=== PATIENT | female | born 1950 | race Caucasian/White ===

== ENCOUNTER 2017-07-06 09:27 | Observation (INO) ==
[2017-07-06] MEDS ORDERED: ACETAMINOPHEN 325 MG TABLET PO PRN (09:31)
[2017-07-06] MEDS ORDERED: DOCUSATE SODIUM 100 MG CAPSULE PO PRN (09:31)
[2017-07-06] MEDS ORDERED: ONDANSETRON 4 MG/2 ML VIAL IV PRN (09:31)
[2017-07-06 10:25] LABS: Basophils % 0.4 % (0.0-0.8); Eosinophils # 0.1 10*3/uL (0.0-0.87); Eosinophils % 0.5 % (0.00-10.9); Hematocrit 45.5 VOL% (35.7-47.0); Immature Granulocytes % 0.3 %; Immature Granulocytes Absolute 0.03 #; Lymphocytes # 2.5 10*3/uL (1.4-4.0); Mean Corpuscular HGB Conc 35.2 GM/DL (32-36); Mean Corpuscular Hemoglobin 30 PG (27-34); Mean Corpuscular Volume 84.9 FL (87-102); Mean Platelet Volume 9.3 FL (9.6-12.0); Monocytes # 0.8 10*3/uL (0.11-0.8); Monocytes % 7.4 % (1.7-12.7); Neutrophils # 7.1 10*3/uL (1.4-7.4); Neutrophils % 67.4 % (38.7-73.9); Platelet Count 235 T/CUMM (130-400); Red Blood Count 5.36 MC/CUMM (3.8-5.5); Red Cell Distribution Width 13.6 % (9.3-17.3); White Blood Count 10.5 T/CUMM (4-12)
[2017-07-06 10:53] LABS: Albumin 4.1 G/DL (3.4-5.0); Bilirubin,Total 0.6 MG/DL (0.2-1.0); Magnesium 2.4 MG/DL (1.8-2.4); Osmolality,Calculated 280.4 MOS/KG (273-304); Potassium 4.1 MMOL/L (3.5-5.1); Total Protein 7.3 G/DL (6.4-8.3)
[2017-07-06 10:55] LABS: Troponin I Only < 0.015 NG/ML (0.00-0.045)
--- NOTE | 2017-07-06 10:56 | EKG Report ---
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
[2017-07-06 11:31] LABS: Troponin I Only < 0.015 NG/ML (0.00-0.045)
[2017-07-06 11:49] LABS: Apearance,Urine Slightly Hazy (Clear); Bacteria,Urine Occasional /HPF (Few); Bilirubin,Urine Negative (Negative); Blood, Urine Negative (Negative); Glucose,Urine (UA) Negative (Negative); Ketones,Urine 5 mg/dL (Negative); Mucus,Urine Occasional /LPF (Occasional); Nitrite,Urine Negative (Negative); Protein,Urine Negative; RBC,Urine 2 /HPF (0-4); Squamous Epithelial Cell,Urine Occasional /HPF (0-10); Urine Color Yellow (Yellow); WBC,Urine 1 /HPF (0-6)
--- NOTE | 2017-07-06 12:35 | Family Practice History&Phys ---
Assessment and Plan (1) Chest pain at rest Status: Acute Assessment and plan: 07/06/2017 we will admit patient and have her see cardiology. I am going to put her on Lopressor gave her an aspirin in the clinic she was admitted to the hospital. Current Visit: Yes (2) Fibromyalgia Status: Acute Assessment and plan: 07/06/2017: We will continue any medicines necessary for this. She is on chronic pain medicine Current Visit: Yes (3) History of gastroesophageal reflux (GERD) Status: Acute Assessment and plan: 07/06/2017: She can only take probably 6. States that she does not tolerate Protonix so we will continue Prilosec Current Visit: Yes History of Present Illness Chief complaint: Chest pain History of present illness: Ms. Cronin is a 67 year old female Came to my clinic with some what atypical chest pain. She stated that she had been having "pressure "for a few days in her chest, describing it as labor pains. She had a little bit of nausea but no vomiting. I cannot reproduce this pain with palpation or pressing of the chest wall. Nor with moving her arms. It did go up into her shoulder slightly but not into the jaw all and not down her arm. Does not have any associated diaphoresis but has had some shortness of breath. She is was concerned that she had a pneumonia but her lungs are totally clear and oxygen sats are 96%. I felt the best approach at this time will be to put her in the hospital for observation and get some cardiac ices with serial EKGs. She has had a cardiac study approximately "3 years "ago which she reported as negative but she has some risk factors include including hypercholesterolemia, hyperlipidemia and was a former smoker. I am going to get cardiology to look at her during this visit. If she is fine tomorrow with them I can probably discharge her. Allergies Allergy/AdvReac Type Severity Reaction Status Date / Time acetaminophen Allergy Mild NUMBNESS Verified 07/06/17 10:35 [From Darvocet-N] Amoxicillin [From Augmentin] Allergy Mild Gastrointestinal Verified 07/06/17 10: 35 Upset clavulanic acid Allergy Mild Gastrointestinal Verified 07/06/17 10:35 [From Augmentin] Upset propoxyphene Allergy Mild NUMBNESS Verified 07/06/17 10:35 [From Darvocet-N] 12 point system: reviewed and no additional remarkable complaints except as stated (Those mentioned above in the history and physical) - Cardiovascular Cardiovascular: Present: chest pain at rest - Respiratory Respiratory: Absent: wheezing - Genitourinary Genitourinary: Absent: difficulty urinating - Musculoskeletal Musculoskeletal: Present: arthralgias (History of fibromyalgia) - Neurological Neurological: Absent: abnormal gait, disequilibrium - Endocrine Endocrine: Absent: polyuria Medical,Surgical,& Family Hx - Medical History Rheumatology: History of;: Fibromyalgia Respiratory: History of: Pneumonia, Respiratory Problems (nodle right lung) Gastrointestinal: History of: GERD, GI Problems (IBS) Musculoskeletal: History of: Degenerative Disk Disease Reproductive: History of: Reproductive Problems (breast biopsy) - Surgical History Cardiac Surgeries: Sugical HX of: Cardiac Catheterization Thoracic Surgeries: Patient denies;: Organ Transplant Abdominal Surgeries: Surgical HX of: Appendectomy, Cholecystectomy, Colonoscopy , EGD Reproductive Surgeries: Surgical HX of;: Breast Surgery, Genitourinary Surgery ( bladder tact) Orthopedic Surgeries: Surgical HX of;: Total Knee Replacement - Family History Family History: Reports;: Family Hypertension, Family Stroke Denies;: Family Cancer, Family Diabetes, Family Heart Disease, Family Hematology - Social History Smoking Status: Former smoker Frequency of Alcohol Use: None Type of Drug Use: None Exam - Constitutional Vitals: Period Temp Pulse Resp BP Sys/Rodriguez Pulse Ox Last 24 Hr 98.9 F 66 16 142/60 97 Exam: Generally well-developed female is alert and oriented answers all questions appropriately. This is her second visit to me for the similar situation HEENT neck supple trachea midline oropharynx negative Cardiovascular rate is regular at present Lungs generally clear no wheezing rales rhonchi appreciated the patient is not coughing. Abdomen soft nondistended Extremities no clubbing cyanosis or edema Results - Labs CBC & BMP: 07/06/17 10:18 07/06/17 10:18
[2017-07-06] MEDS: METOPROLOL SUCCINATE XL 25 MG TABLET PO SCH (12:39)
[2017-07-06] MEDS: ENOXAPARIN 40 MG/0.4 ML SYRINGE SUBCUT SCH (12:56)
[2017-07-06] MEDS: SODIUM CHLORIDE 0.45% 1,000 ML IV SCH (12:56)
--- NOTE | 2017-07-06 14:38 | XRay Report ---
XR chest 2V Indication: Respiratory preoperative evaluation Comparison: 07 October 2011 Findings: The heart and mediastinum are normal in size and configuration. The pulmonary vascularity is normal in caliber. No lung infiltrates, effusions, pneumothorax or other abnormality is demonstrated. Impression: Normal chest x-ray PROCEDURE INTERPRETED AT [facility] DEPARTMENT OF RADIOLOGY Final Report Signed by: Dr. Tawanda Oropeza
[2017-07-06 16:28] LABS: Troponin I Only < 0.015 NG/ML (0.00-0.045)
--- NOTE | 2017-07-06 16:54 | Cardiology Consult Note ---
Assessment and Plan - Time spent with patient Time spent with patient: Greater than 30 minutes (1) Chest pain at rest Status: Acute Current Visit: Yes (2) Dyslipidemia Status: Acute Current Visit: Yes (3) Hypertension Status: Acute Current Visit: Yes (4) Fibromyalgia Status: Chronic Current Visit: Yes (5) History of gastroesophageal reflux (GERD) Status: Chronic Current Visit: Yes (6) Pulmonary nodule Status: Chronic Assessment and plan: SEE PLAN OF CARE LISTED BELOW. Current Visit: Yes (7) Syncope Status: Acute Assessment and plan: SEE PLAN OF CARE LISTED BELOW. Current Visit: Yes (8) Fluttering sensation of heart Status: Acute Assessment and plan: SEE PLAN OF CARE LISTED BELOW. Current Visit: Yes History of Present Illness - Data of Consult Patient: new to practice Consult date: 07/06/17 Requesting Physician: Tony Dorsey Primary care physician: Tony Dorsey - Consult Narrative Reason for consult: Chest pain History of present illness: SURGICAL GARMENT INSPECTOR: Leonard Zhou PCP: Dr. Dorsey Ms. Cronin is a 67 year old female who is followed by Dr. Neville in the remote past. She has not been seen by local cardiology in over 3 years. She has been seen by Dr. Best in consultation in the hospital previously. Cardiac risk factors include: Advanced age, former smoker, family history of CAD (dad from [place] at age 65) and dyslipidemia. Past medical history includes fibromyalgia and GERD. She previously had normal cardiac nuclear perfusion stress test in 2008. Ejection fraction calculated at 66%. She underwent left heart catheterization per Dr. Best in 2012. She was noted to have normal coronary arteries. Left ventricle is normal in size, normal systolic function with ejection fraction above 60%. No segmental wall motion abnormalities. LVEDP 8 mmHg. Patient has not followed up in clinic. Patient was directly admitted from Dr. Dorsey's office earlier today after having complaints of chest pain. She has been having constant chest pain now for the last couple of months. She describes this as a dull, aching pain located midsternally. Radiates to left shoulder. Associated with shortness of breath. No nausea, vomiting or diaphoresis. She reports that her chest discomfort has progressed here lately. She reports it as constant. Worse with exertion. She also confirms easy fatigability and dyspnea on exertion. She has had 3 syncopal episodes over the last couple of months. She has noticed occasional heart fluttering. However, she tells me that this is not been associated with her syncopal episodes. These only last a short period of time. Resolve on their own. This morning, she did have an episode of presyncope while in the shower. She quickly got out of the shower and sat down. This quickly resolved. She then presented to her PCP for checkup. At that time, she was told that she needed to be admitted to the hospital for further evaluation. She is admitted under Dr. Dorsey's service. Housed in the CCU. Cardiology was consulted to further evaluate her symptomology. Patient seen and examined in the CCU. Currently without complaints of chest pain, heaviness or tightness. Not reproducible to light palpation. Cardiac biomarkers negative 3. EKG reveals poor R-wave progression. Chest x-ray does not reveal any acute cardiopulmonary processes. Her chest pain is atypical in nature.Cardiac biomarkers negative 3. EKG reveals poor R-wave progression. Patient underwent heart catheterization 2010 which revealed normal coronary arteries. Continue beta-blockade, aspirin and lipid-lowering agent. It is possible that this could be related to patient's underlying fibromyalgia. We will continue to cycle cardiac biomarkers and EKGs. I have discussed with Dr. Zhou. We will plan for cardiac stress test in the morning. N.p.o. after midnight. Hold beta blockade prior to stress test. Further recommendations to follow per Dr. Zhou. IMPRESSION AND PLAN 1. CHEST PAIN AT REST - Atypical in nature. Cardiac biomarkers negative 3. EKG reveals poor R-wave progression. Patient underwent heart catheterization 2010 which revealed normal coronary arteries. Continue beta-blockade, aspirin and lipid-lowering agent. It is possible that this could be related to patient' s underlying fibromyalgia. We will continue to cycle cardiac biomarkers and EKGs. I have discussed with Dr. Zhou. Order echocardiogram. We will plan for cardiac stress test in the morning. N.p.o. after midnight. Hold beta blockade prior to stress test. 2. FIBROMYALGIA - Chronic, stable. This may be contributing to patient's chest pain. Management per attending. 3. DYSLIPIDEMIA - Continue lipid-lowering agent. Lipid panel in the morning. 4. HISTORY OF GERD - PPI added. 5. HYPERTENSION - Continue beta-blockade. Will monitor blood pressure and adjust medications accordingly. Can add CLAUDIA inhibitor or ARB if blood pressure remains uncontrolled. 6. PULMONARY NODULE - Chronic, stable. Defer management to attending. 7. SYNCOPE - Patient reports 3 syncopal episodes over the last 3 months. It is possible that she may have underlying arrhythmia as she also reports occasional heart fluttering. No evidence of arrhythmia noted this hospitalization. We will continue to monitor her on the orthotics assistant. She may benefit from event monitor at discharge. Will order orthostatic vital signs and carotid ultrasound. CC: Tony Dorsey DO - Home Medications and Allergies Home Medications: Home Medications Medication Instructions Recorded Confirmed Type Estropipate 1.25 mg PO DAILY 07/06/17 07/06/17 History HYDROcodone/ACETAMIN 5-325 [[place] 1 tablet PO TID 07/06/17 07/06/17 History 5-325] Lovastatin 20 mg PO DAILY W/BREAKFAST 07/06/17 07/06/17 History Omeprazole [Prilosec] 20 mg PO DAILY 07/06/17 07/06/17 History Allergies/Adverse Reactions: Allergies Allergy/AdvReac Type Severity Reaction Status Date / Time acetaminophen Allergy Mild NUMBNESS Verified 07/06/17 10:35 [From Darvocet-N] Amoxicillin [From Augmentin] Allergy Mild Gastrointestinal Verified 07/06/17 10: 35 Upset clavulanic acid Allergy Mild Gastrointestinal Verified 07/06/17 10:35 [From Augmentin] Upset propoxyphene Allergy Mild NUMBNESS Verified 07/06/17 10:35 [From Darvocet-N] - Constitutional Constitutional: Present: as per HPI, fatigue. Absent: chills, fever(s), frequent falls, headache(s), lethargy, malaise, weakness, weight gain, weight loss - Cardiovascular Cardiovascular: Present: as per HPI, chest pain at rest, chest pain with activity, dyspnea, dyspnea on exertion, radiating jaw, neck or arm pain, lightheadedness, palpitations. Absent: claudication, diaphoresis, edema, orthopnea, PND - Respiratory Respiratory: Present: as per HPI, dyspnea, dyspnea on exertion. Absent: cough, hemoptysis, wheezing, snoring, pain on inspiration, change in phlegm color - Gastrointestinal Gastrointestinal: Present: as per HPI, heartburn. Absent: abdominal pain, change in bowel habits, coffee ground emesis, melena, nausea, vomiting - Psychiatric Psychiatric: Present: as per HPI. Absent: anxiety, panic attacks Medical,Surgical,& Family Hx - Medical History Endocrine: History of: Dyslipidemia Rheumatology: History of;: Fibromyalgia Respiratory: History of: Pneumonia, Respiratory Problems (nodle right lung) Gastrointestinal: History of: GERD, GI Problems (IBS) Musculoskeletal: History of: Degenerative Disk Disease Reproductive: History of: Reproductive Problems (breast biopsy) - Surgical History Cardiac Surgeries: Sugical HX of: Cardiac Catheterization Thoracic Surgeries: Patient denies;: Organ Transplant Abdominal Surgeries: Surgical HX of: Appendectomy, Cholecystectomy, Colonoscopy , EGD Reproductive Surgeries: Surgical HX of;: Breast Surgery, Genitourinary Surgery ( bladder tact) Orthopedic Surgeries: Surgical HX of;: Total Knee Replacement - Family History Family History: Reports;: Family Hypertension, Family Stroke Denies;: Family Cancer, Family Diabetes, Family Heart Disease, Family Hematology - Social History Smoking Status: Former smoker Frequency of Alcohol Use: None Type of Drug Use: None Functional capacity: independent ambulation Physical Examination Vital Signs Temp Pulse Resp BP Pulse Ox 98.9 F 66 16 142/60 97 07/06/17 10:04 07/06/17 10:04 07/06/17 10:04 07/06/17 10:04 07/06/17 10:04 Exam: General: Appears well with no apparent distress. Pleasant and cooperative. Appears comfortable. HEENT: PERRL, normocephalic, atraumatic. Mucous membranes moist. No jaundice noted. Conjunctiva moist and clear, sclerae anicteric Neck: No JVD/HJR, no thyromegaly or lymphadenopathy noted. No carotid bruit appreciated Cardiac: Regular rate and rhythm. No murmur rub or gallop. Lungs: Clear to auscultation without accessory muscle use to assist the respiratory pattern. Not requiring oxygen. Abdomen: Soft, bowel sounds normoactive. Nontender and nondistended. No abdominal bruit or thrill noted. No masses noted. Extremities: No clubbing, cyanosis noted. No edema noted. Upper extremity pulses 2+. Lower extremity pulses 2+. Capillary refill less than 3 seconds. Skin: No unusual lesions or rashes. No skin breakdown appreciated. Neuro: Awake, alert and oriented 3. Moves all extremities well without hemiparesis or paralysis. No essential tremor is appreciated. Result/EKG - Labs CBC & BMP: 07/06/17 10:18 07/06/17 10:18 Lab Results: I have reviewed the past 24 hour labs Labs: Laboratory Results - last 24 hr 07/06/17 07/06/17 07/06/17 10:18 10:18 10:18 WBC 10.5 RBC 5.36 Hgb 16.0 Hct 45.5 MCV 84.9 L MCH 30 MCHC 35.2 RDW 13.6 Plt Count 235 MPV 9.3 L Neut % (Auto) 67.4 Lymph % (Auto) 24.0 [place] % (Auto) 7.4 Eos % (Auto) 0.5 Baso % (Auto) 0.4 Neut # (Auto) 7.1 Lymph # (Auto) 2.5 [place] # (Auto) 0.8 Eos # (Auto) 0.1 Baso # (Auto) 0.0 Immature Gran % 0.3 Nucleated RBC % 0.0 Immature Gran # 0.03 Nucleated RBCs # 0.00 Immature Plt Fraction 0.0 Sodium 140 Potassium 4.1 Chloride 106 Carbon Dioxide 30 Anion Gap 8.1 BUN 17 Creatinine 1.10 H GFR Calculation 55 BUN/Creatinine Ratio 15.00 Glucose 98 Calculated Osmolality 280.4 Calcium 10.0 Magnesium 2.4 Total Bilirubin 0.60 AST 27 ALT 41 Alkaline Phosphatase 95 Total Creatine Kinase 90 CK-MB (CK-2) < 1.0 Troponin I < 0.015 Total Protein 7.3 Albumin 4.1 Globulin 3.2 Albumin/Globulin Ratio 1.2 Urine Color Urine Appearance Urine pH Ur Specific Todd Urine Protein Urine Glucose (UA) Urine Ketones Urine Blood Urine Nitrate Urine Bilirubin Urine Urobilinogen Urine Leukocytes Urine RBC Urine WBC Ur Squamous Epith Cells Urine Bacteria Urine Mucus Ur Culture Indicated? 07/06/17 07/06/17 07/06/17 10:18 11:32 15:54 WBC RBC Hgb Hct MCV MCH MCHC RDW Plt Count MPV Neut % (Auto) Lymph % (Auto) [place] % (Auto) Eos % (Auto) Baso % (Auto) Neut # (Auto) Lymph # (Auto) [place] # (Auto) Eos # (Auto) Baso # (Auto) Immature Gran % Nucleated RBC % Immature Gran # Nucleated RBCs # Immature Plt Fraction Sodium Potassium Chloride Carbon Dioxide Anion Gap BUN Creatinine GFR Calculation BUN/Creatinine Ratio Glucose Calculated Osmolality Calcium Magnesium Total Bilirubin AST ALT Alkaline Phosphatase Total Creatine Kinase 86 87 CK-MB (CK-2) Troponin I < 0.015 < 0.015 Total Protein Albumin Globulin Albumin/Globulin Ratio Urine Color Yellow Urine Appearance Slightly hazy Urine pH 5.0 Ur Specific Todd 1.020 Urine Protein Negative Urine Glucose (UA) Negative Urine Ketones 5 Urine Blood Negative Urine Nitrate Negative Urine Bilirubin Negative Urine Urobilinogen 2.0 H Urine Leukocytes Negative Urine RBC 2 Urine WBC 1 Ur Squamous Epith Cells Occasional Urine Bacteria Occasional Urine Mucus Occasional Ur Culture Indicated? Not indicated
[2017-07-06] MEDS ORDERED: PANTOPRAZOLE 40 MG TABLET PO SCH (17:00)
--- NOTE | 2017-07-06 19:47 | Ultrasound Report ---
Exam:US carotid duplex BI Date:07/06/2017 5:19 PM Indication: Syncope Color Doppler, wave form analysis, and grayscale analysis of the cervical carotid arteries was performed. There is minimal smooth plaque in either carotid bulb. Waveform analysis shows proper directional flow of the cervical carotid arteries. There is antegrade flow in either vertebral artery. There is mild increased peak systolic velocity in the left internal carotid artery, though the IC/CC ratio remains normal. Impression: There is 50-69% diameter reduction narrowing of the left internal carotid artery and 16-49% diameter reduction narrowing of the right internal carotid artery using indirect NASCET criteria Right Side Flow velocities centimeters per second Common carotid artery: 95 Proximal ICA: 87 Distal ICA: 82 External carotid artery: 87 Vertebral artery: 87 ICA/CCA ratio: 0.9 Measurements in millimeters Distal ICA: 5.2 Left SIde Flow velocities centimeters per second Common carotid artery 107 Proximal ICA: 76 Distal ICA: 151 External carotid artery: 86 Vertebral artery: 60 ICA/CCA ratio: 1.4 Measurements in millimeters Distal ICA: 4.8 Today studies were performed utilizing indirect NASCET criteria PROCEDURE INTERPRETED AT [facility] DEPARTMENT OF RADIOLOGY Final Report Signed by: Dr. Klaudia Hernández
[2017-07-06] MEDS ORDERED: LOVASTATIN 20 MG TABLET PO SCH (21:00)
[2017-07-06] MEDS: OMEPRAZOLE 20MG PO SCH (22:01)
[2017-07-06 23:33] LABS: Troponin I Only < 0.015 NG/ML (0.00-0.045)
[2017-07-07] MEDS: SODIUM CHLORIDE 0.45% 1,000 ML IV SCH ×2 (05:06→11:46)
[2017-07-07 05:11] LABS: Basophils % 0.5 % (0.0-0.8); Eosinophils # 0.2 10*3/uL (0.0-0.87); Eosinophils % 2.2 % (0.00-10.9); Hematocrit 44.5 VOL% (35.7-47.0); Immature Granulocytes % 0.1 %; Immature Granulocytes Absolute 0.01 #; Lymphocytes # 2.7 10*3/uL (1.4-4.0); Lymphocytes % 35.9 % (21.3-54.2); Mean Corpuscular HGB Conc 33.7 GM/DL (32-36); Mean Corpuscular Hemoglobin 29 PG (27-34); Mean Corpuscular Volume 86.4 FL (87-102); Mean Platelet Volume 9.2 FL (9.6-12.0); Monocytes # 0.9 10*3/uL (0.11-0.8); Monocytes % 11.8 % (1.7-12.7); Neutrophils # 3.7 10*3/uL (1.4-7.4); Neutrophils % 49.5 % (38.7-73.9); Platelet Count 211 T/CUMM (130-400); Red Blood Count 5.15 MC/CUMM (3.8-5.5); Red Cell Distribution Width 13.5 % (9.3-17.3); White Blood Count 7.4 T/CUMM (4-12)
[2017-07-07 05:20] LABS: INR 1.1; PT Patient Result 11.4 SECS; Partial Thromboplastin Time 28.9 SECS (0-40)
[2017-07-07 05:37] LABS: Calcium 9.6 MG/DL (8.5-10.1); Magnesium 2.3 MG/DL (1.8-2.4); Potassium 4.5 MMOL/L (3.5-5.1)
[2017-07-07 05:43] LABS: Risk Ratio 3.55; VLDL CHOLESTEROL 41.2 MG/DL
[2017-07-07] MEDS ORDERED: REGADENOSON 0.4 MG/5 ML SYRINGE IV ONE (08:48)
--- NOTE | 2017-07-07 08:57 | Cardiology Progress Note ---
Assessment and Plan - Time spent with patient Time spent with patient: Less than 30 minutes (1) Chest pain at rest Status: Acute Assessment and plan: See plan of care listed below. Current Visit: Yes (2) Dyslipidemia Status: Chronic Assessment and plan: See plan of care listed below. Current Visit: Yes (3) Fluttering sensation of heart Status: Acute Assessment and plan: See plan of care listed below. Current Visit: Yes (4) Hypertension Status: Acute Assessment and plan: See plan of care listed below. Current Visit: Yes (5) Syncope Status: Acute Assessment and plan: See plan of care listed below. Current Visit: Yes (6) Fibromyalgia Status: Chronic Assessment and plan: See plan of care listed below. Current Visit: Yes (7) History of gastroesophageal reflux (GERD) Status: Chronic Current Visit: Yes (8) Pulmonary nodule Status: Chronic Assessment and plan: See plan of care listed below. Current Visit: Yes Cardiology - PN: Subj Interval history: COMMODITY MANAGEMENT SPECIALIST: Seen by Dr. Best in remote past PCP: Dr. Dorsey SUMMARY: Ms. Cronin is a 67 year old female who was directly admitted from Dr. Dorsey's office for complaints of chest pain ongoing for the past couple of months and 3 syncopal episodes. She had a prior history of chest pain with no obstructive CAD via [facility] in 2012. She also has a history of fibromyalgia, dyslipidemia, GERD, and fatigue. Cardiac biomarkers negative 3. EKG reveals poor R-wave progression. 2016: Ms. Cronin is not feeling well this morning. She reports she has not rested well and feels weak and nauseated this morning. She underwent stress testing with Lexiscan due to her weakness and nausea. Her chest pain remained stable and did not change during the test. She reports it never really goes away. Will await stress test results. If no obstructive CAD amenable to intervention and no high-risk arrhythmia is identified on telemetry , she will need a 30 day event recorder at discharge. IMPRESSION AND PLAN 1. CHEST PAIN AT REST - Atypical in nature. It is possible that this could be related to patient's underlying fibromyalgia. Results of nuclear stress test pending. We will review her echocardiogram. 2. FIBROMYALGIA - Chronic, stable. This may be contributing to patient's chest pain. Management per attending. 3. DYSLIPIDEMIA - Continue lipid-lowering agent. Lipid panel revealed triglycerides 206, cholesterol 167, LDL 102, HDL 47. 4. HISTORY OF GERD - PPI added. 5. HYPERTENSION - Continue beta-blockade. Will monitor blood pressure and adjust medications accordingly. Can add CLAUDIA inhibitor or ARB if blood pressure remains uncontrolled. 6. PULMONARY NODULE - Chronic, stable. Defer management to attending. 7. SYNCOPE - Patient reports 3 syncopal episodes over the last 3 months. It is possible that she may have underlying arrhythmia as she also reports occasional heart fluttering. No evidence of arrhythmia noted this hospitalization. We will continue to monitor her on the cardiac rehabilitation program director. She may benefit from event monitor at discharge. Carotid ultrasound revealed 50-69 % diameter narrowing of the left internal carotid artery and 16-49% diameter narrowing of the right internal carotid artery. Exam (Progress Note) - Constitutional Vitals: Period Temp Pulse Resp BP Sys/Rodriguez Pulse Ox Last 24 Hr 98.1 F-98.9 F 63-70 12-22 123-148/49-72 94-97 Exam: General: Appears well with no apparent distress. Pleasant and cooperative. Appears comfortable. HEENT: PERRL, normocephalic, atraumatic. Mucous membranes moist. No jaundice noted. Conjunctiva moist and clear, sclerae anicteric Neck: No JVD/HJR, no thyromegaly or lymphadenopathy noted. No carotid bruit appreciated Cardiac: Regular rate and rhythm. No murmur rub or gallop. Lungs: Clear to auscultation without accessory muscle use to assist the respiratory pattern. Not requiring oxygen. Abdomen: Soft, bowel sounds normoactive. Nontender and nondistended. No abdominal bruit or thrill noted. No masses noted. Extremities: No clubbing, cyanosis noted. No edema noted. Upper extremity pulses 2+. Lower extremity pulses 2+. Capillary refill less than 3 seconds. Skin: No unusual lesions or rashes. No skin breakdown appreciated. Neuro: Awake, alert and oriented 3. Moves all extremities well without hemiparesis or paralysis. No essential tremor is appreciated. Result/EKG - Labs CBC & BMP: 07/07/17 04:28 07/07/17 04:28 Lab Results: I have reviewed the past 24 hour labs Labs: Laboratory Results - last 24 hr 07/06/17 07/06/17 07/06/17 10:18 10:18 10:18 WBC 10.5 RBC 5.36 Hgb 16.0 Hct 45.5 MCV 84.9 L MCH 30 MCHC 35.2 RDW 13.6 Plt Count 235 MPV 9.3 L Neut % (Auto) 67.4 Lymph % (Auto) 24.0 [place] % (Auto) 7.4 Eos % (Auto) 0.5 Baso % (Auto) 0.4 Neut # (Auto) 7.1 Lymph # (Auto) 2.5 [place] # (Auto) 0.8 Eos # (Auto) 0.1 Baso # (Auto) 0.0 Immature Gran % 0.3 Nucleated RBC % 0.0 Immature Gran # 0.03 Nucleated RBCs # 0.00 Immature Plt Fraction 0.0 INR PT Patient/Control Mix D-Dimer, Quantitative Circ Anticoag PTT Sodium 140 Potassium 4.1 Chloride 106 Carbon Dioxide 30 Anion Gap 8.1 BUN 17 Creatinine 1.10 H GFR Calculation 55 BUN/Creatinine Ratio 15.00 Glucose 98 Calculated Osmolality 280.4 Calcium 10.0 Magnesium 2.4 Total Bilirubin 0.60 AST 27 ALT 41 Alkaline Phosphatase 95 Total Creatine Kinase 90 CK-MB (CK-2) < 1.0 Troponin I < 0.015 Total Protein 7.3 Albumin 4.1 Globulin 3.2 Albumin/Globulin Ratio 1.2 Triglycerides Cholesterol LDL Cholesterol VLDL Cholesterol HDL Cholesterol Heart Disease Risk Ratio Urine Color Urine Appearance Urine pH Ur Specific [place] Urine Protein Urine Glucose (UA) Urine Ketones Urine Blood Urine Nitrate Urine Bilirubin Urine Urobilinogen Urine Leukocytes Urine RBC Urine WBC Ur Squamous Epith Cells Urine Bacteria Urine Mucus Ur Culture Indicated? 07/06/17 07/06/17 07/06/17 10:18 11:32 15:54 WBC RBC Hgb Hct MCV MCH MCHC RDW Plt Count MPV Neut % (Auto) Lymph % (Auto) [place] % (Auto) Eos % (Auto) Baso % (Auto) Neut # (Auto) Lymph # (Auto) [place] # (Auto) Eos # (Auto) Baso # (Auto) Immature Gran % Nucleated RBC % Immature Gran # Nucleated RBCs # Immature Plt Fraction INR PT Patient/Control Mix D-Dimer, Quantitative Circ Anticoag PTT Sodium Potassium Chloride Carbon Dioxide Anion Gap BUN Creatinine GFR Calculation BUN/Creatinine Ratio Glucose Calculated Osmolality Calcium Magnesium Total Bilirubin AST ALT Alkaline Phosphatase Total Creatine Kinase 86 87 CK-MB (CK-2) Troponin I < 0.015 < 0.015 Total Protein Albumin Globulin Albumin/Globulin Ratio Triglycerides Cholesterol LDL Cholesterol VLDL Cholesterol HDL Cholesterol Heart Disease Risk Ratio Urine Color Yellow Urine Appearance Slightly hazy Urine pH 5.0 Ur Specific [place] 1.020 Urine Protein Negative Urine Glucose (UA) Negative Urine Ketones 5 Urine Blood Negative Urine Nitrate Negative Urine Bilirubin Negative Urine Urobilinogen 2.0 H Urine Leukocytes Negative Urine RBC 2 Urine WBC 1 Ur Squamous Epith Cells Occasional Urine Bacteria Occasional Urine Mucus Occasional Ur Culture Indicated? Not indicated 07/06/17 07/06/17 07/07/17 17:44 22:21 04:27 WBC RBC Hgb Hct MCV MCH MCHC RDW Plt Count MPV Neut % (Auto) Lymph % (Auto) [place] % (Auto) Eos % (Auto) Baso % (Auto) Neut # (Auto) Lymph # (Auto) [place] # (Auto) Eos # (Auto) Baso # (Auto) Immature Gran % Nucleated RBC % Immature Gran # Nucleated RBCs # Immature Plt Fraction INR 1.1 PT Patient/Control Mix 11.4 D-Dimer, Quantitative <= 0.5 Circ Anticoag PTT 28.9 Sodium Potassium Chloride Carbon Dioxide Anion Gap BUN Creatinine GFR Calculation BUN/Creatinine Ratio Glucose Calculated Osmolality Calcium Magnesium Total Bilirubin AST ALT Alkaline Phosphatase Total Creatine Kinase 79 CK-MB (CK-2) Troponin I < 0.015 Total Protein Albumin Globulin Albumin/Globulin Ratio Triglycerides Cholesterol LDL Cholesterol VLDL Cholesterol HDL Cholesterol Heart Disease Risk Ratio Urine Color Urine Appearance Urine pH Ur Specific [place] Urine Protein Urine Glucose (UA) Urine Ketones Urine Blood Urine Nitrate Urine Bilirubin Urine Urobilinogen Urine Leukocytes Urine RBC Urine WBC Ur Squamous Epith Cells Urine Bacteria Urine Mucus Ur Culture Indicated? 07/07/17 07/07/17 07/07/17 04:28 04:28 04:28 WBC 7.4 RBC 5.15 Hgb 15.0 Hct 44.5 MCV 86.4 L MCH 29 MCHC 33.7 RDW 13.5 Plt Count 211 MPV 9.2 L Neut % (Auto) 49.5 Lymph % (Auto) 35.9 [place] % (Auto) 11.8 Eos % (Auto) 2.2 Baso % (Auto) 0.5 Neut # (Auto) 3.7 Lymph # (Auto) 2.7 [place] # (Auto) 0.9 H Eos # (Auto) 0.2 Baso # (Auto) 0.0 Immature Gran % 0.1 Nucleated RBC % 0.0 Immature Gran # 0.01 Nucleated RBCs # 0.00 Immature Plt Fraction 0.0 INR PT Patient/Control Mix D-Dimer, Quantitative Circ Anticoag PTT Sodium 143 Potassium 4.5 Chloride 107 Carbon Dioxide 30 Anion Gap 10.5 BUN 15 Creatinine 0.90 GFR Calculation 70 BUN/Creatinine Ratio 16.00 Glucose 102 Calculated Osmolality 285.0 Calcium 9.6 Magnesium 2.3 Total Bilirubin AST ALT Alkaline Phosphatase Total Creatine Kinase CK-MB (CK-2) Troponin I Total Protein Albumin Globulin Albumin/Globulin Ratio Triglycerides 206 H Cholesterol 167 LDL Cholesterol 102.0 VLDL Cholesterol 41.2 HDL Cholesterol 47 Heart Disease Risk Ratio 3.55 Urine Color Urine Appearance Urine pH Ur Specific [place] Urine Protein Urine Glucose (UA) Urine Ketones Urine Blood Urine Nitrate Urine Bilirubin Urine Urobilinogen Urine Leukocytes Urine RBC Urine WBC Ur Squamous Epith Cells Urine Bacteria Urine Mucus Ur Culture Indicated? - EKG EKG results: interpreted by me, sinus rhythm
--- NOTE | 2017-07-07 08:57 | Event Note ---
Patient admitted with atypical chest pain and palpitations with previously negative cardiac workup. Patient felt weak and nauseated prior to start of stress test. She has had continued chest discomfort that has been constant for several months. Shivam protocol attempted, patient unable to walk fast with 1 mph, had worsening of weakness and patient was subsequently transitioned to Lexiscan. No significant EKG changes noted. Blood pressure responded appropriately. Chest pain unchanged during test. Patient had a nuclear medicine for final scan. Dr. Zhou to read, interpret, and advise.
[2017-07-07] MEDS: ASPIRIN CHEW 81 MG TABLET PO SCH (10:45)
[2017-07-07] MEDS: METOPROLOL SUCCINATE XL 25 MG TABLET PO SCH (11:34)
[2017-07-07] MEDS: ENOXAPARIN 40 MG/0.4 ML SYRINGE SUBCUT SCH (11:38)
--- NOTE | 2017-07-07 13:48 | Nuclear Medicine Report ---
PHARMACOLOGIC STRESS TEST REPORT Test is interpreted and dictated by Dr. Sharif Zhou. INDICATION: Chest pain. PROCEDURE: At rest, 10 mCi of 99-Technetium labeled Sestamibi was injected and rest images were obtained. Shivam treadmill stress protocol was attempted, but the patient was unable to exercise. A 0.4 mg of IV Lexiscan was injected. Post -pharmacological stress, 30 mCi of 99-Technetium with sestamibi was injected and post stress images were obtained. FINDINGS: At rest, 66 beats per minute, sinus rhythm, blood pressure 132/70 mmHg. The patient has persistent chest pain for few weeks, which did not change during the procedure. After pharmacological injection, heart rate 129 beats per minute, sinus tachycardia, blood pressure 140/80 mmHg, without significant ST-T changes. There was no change in chest pain. Rest and post stress gated and perfusion images were reviewed. The left ventricle is small in size, end-diastolic volume is 60 cc, end-systolic volume is 12 cc, the calculated ejection fraction is 75%. At rest, there is a small area of mildly diffuse activity in the anteroseptal/apical region, which improved post stress, suggestive of imaging artifacts. There are no corresponding wall motion abnormalities. CONCLUSION: 1. CLINICALLY AND ELECTRICALLY NEGATIVE PHARMACOLOGICAL STRESS TEST. 2. SMALL LEFT VENTRICLE, WITH NORMAL EJECTION FRACTION, WITHOUT EVIDENCE OF OLD MYOCARDIAL DISEASE OR ISCHEMIA. 3. THIS IS A LOW RISK TEST. Procedure performed and interpreted at [facility] Department of Radiology. [facility]
[2017-07-07] MEDS ORDERED: LOVASTATIN 20 MG TABLET PO SCH (15:58)
[2017-07-07] MEDS ORDERED: METOPROLOL SUCCINATE XL 50 MG TABLET PO SCH (16:01)
--- NOTE | 2017-07-07 16:02 | ECHO Report ---
Taina Cronin 07/07/2017 Exam Date: 09:17 Referring Physician: Sena Miller Technologist: [place] Age: 67 Ht (in): 65 Wt (lb): 175 FExam Location: [facility] Gender: Echo [id number]: dyslipidemia, syncope, HTN, chest Indications:pain, fibromyalgia, GERD, pulmonary nodule BP: 137 / 66 HR: 63 SinusRhythm: Technical Quality: IMPRESSIONS Normal left ventricular cavity size. No hypertrophy. Normal systolic function, estimated left ventricle ejection fraction 60%. Grade 1 diastolic dysfunction. No significant valvular abnormalities. Normal pulmonary pressure. MEASUREMENTS (Male / Female) Normal Values 2D ECHO LV Diastolic Diameter PLAX 3.8 cm 4.2 - 5.9 / 3.9 - 5.3 cm LV Systolic Diameter PLAX 2.1 cm LV Fractional Shortening PLAX 43.8 % IVS Diastolic Thickness 0.9 cm 0.6 - 1.0 / 0.6 - 0.9 cm LVPW Diastolic Thickness 1.1 cm 0.6 - 1.0 / 0.6 - 0.9 cm Aortic Root Diameter 2.6 cm LA Systolic Diameter LX 3.5 cm 3.0 - 4.0 / 2.7 - 3.8 cm DOPPLER TR Peak Velocity 271.0 cm/s TR Peak Gradient 29.4 mmHg FINDINGS Left Ventricle Normal left ventricular cavity size. No hypertrophy. Normal systolic function, estimated left ventricle ejection fraction 60%. Grade 1 diastolic dysfunction. Right Ventricle Normal right ventricular size. Right Atrium Normal right atrial size. Left Atrium Normal left atrial size. Mitral Valve Morphologically normal mitral valve. Trace mitral valve regurgitation. Aortic Valve The aortic valve is trileaflet and has normal motion. No stenosis or insufficiency Tricuspid Valve Morphologically normal tricuspid valve. Trace tricuspid valve regurgitation. Tricuspid regurgitation velocities suggest a PAP of 29.4 mmHg + RAP. Pulmonic Valve Morphologically normal pulmonic valve. Pericardium No pericardial effusion. Aorta Normal size aortic root and proximal ascending aorta. Sharif Zhou (Electronically Signed) 07 July 2017 Final Date: 16:01
--- NOTE | 2017-07-07 20:47 | Family Practice Progress Note ---
Family Practice - PN: Subj Interval history: Patient seen this evening. Sitting in chair without acute distress waiting to go to telemetry from CCU. Reports reviewed from cardiology. Do agree with a 30 day event monitor upon discharge. Will have vascular surgery evaluate carotid duplex report and discussed with patient possible options/further studies if necessary. She is very alert, in good spirits, denies any specific symptoms at this time, but daughter states that she has had "floaters" in her left eye and that over the last month or so has had some weakness in her right arm. She was concerned this was related to mother's carotid issues. I told her that I did not think that the duplex study met the criteria for causing these kinds of issues. I am going to get orthostatic vital signs tonight and if patient doing well tomorrow we will probably discharge unless vascular surgery says otherwise. I do appreciate their assistance on this case as well as cardiology. Exam (Progress Note) - Constitutional Vitals: Period Temp Pulse Resp BP Sys/Rodriguez Pulse Ox Last 24 Hr 97.8 F-98.7 F 63-67 12-24 123-139/49-71 94-98 Exam: Generally well-developed female is alert and oriented answers all questions appropriately. Is very coherent, cognitive and in good spirits, follows all commands. HEENT pupils equally reactive to light. She does have cataracts implants bilaterally. Denies any visual cuts or blurred vision at this time. Neck is supple trachea midline, no difficulty with swallowing and has good cough reflex. Cardiovascular rate is regular at present, no gallop or rub. No specific midsternal pain Lungs clear no wheezing rales rhonchi appreciated, the patient is not coughing. No shortness of breath Abdomen soft nondistended, admits to passing some gas. Had a bowel movement this morning Extremities no clubbing cyanosis or edema Neurologically fully intact I do not appreciate any cranial nerve deficits, no lateralizing motor or sensory deficits, and no specific cerebellar findings are appreciated. There is no slurred speech Results - Labs CBC & BMP: 07/07/17 04:28 07/07/17 04:28 Assessment and Plan (1) Chest pain at rest Status: Acute Assessment and plan: 07/06/2017 we will admit patient and have her see cardiology. I am going to put her on Lopressor gave her an aspirin in the clinic she was admitted to the hospital. Current Visit: Yes (2) Fibromyalgia Status: Chronic Assessment and plan: 07/06/2017: We will continue any medicines necessary for this. She is on chronic pain medicine Current Visit: Yes (3) History of gastroesophageal reflux (GERD) Status: Chronic Assessment and plan: 07/06/2017: She can only take probably 6. States that she does not tolerate Protonix so we will continue Prilosec Current Visit: Yes (4) Syncope Status: Acute Assessment and plan: 07/07/2017: I am going to do a tilt test/orthostatic study tonight. As requested by cardiology plan on putting her on a 30 day event monitor Current Visit: Yes Specialty Discharge - Follow Up or Referrals Follow up with: Jaron Best MD [Physician] - 1 Month (Please have patient supervisor opening and picking a 30 day event recorder at [facility] upon discharge and arrange follow up with Dr. Best in 1 month. )
[2017-07-07] MEDS: OMEPRAZOLE 20MG PO SCH (21:19)
[2017-07-08 06:02] LABS: Basophils % 0.4 % (0.0-0.8); Eosinophils # 0.2 10*3/uL (0.0-0.87); Eosinophils % 2.8 % (0.00-10.9); Hemoglobin 13.9 GM/DL (12.0-16.0); Immature Granulocytes % 0.4 %; Immature Granulocytes Absolute 0.03 #; Lymphocytes # 2.6 10*3/uL (1.4-4.0); Lymphocytes % 38.4 % (21.3-54.2); Mean Corpuscular HGB Conc 33.9 GM/DL (32-36); Mean Corpuscular Hemoglobin 30 PG (27-34); Mean Corpuscular Volume 87.2 FL (87-102); Mean Platelet Volume 9.5 FL (9.6-12.0); Monocytes # 0.7 10*3/uL (0.11-0.8); Monocytes % 10.2 % (1.7-12.7); Neutrophils # 3.3 10*3/uL (1.4-7.4); Neutrophils % 47.8 % (38.7-73.9); Platelet Count 204 T/CUMM (130-400); Red Cell Distribution Width 13.3 % (9.3-17.3); White Blood Count 6.9 T/CUMM (4-12)
[2017-07-08 06:33] LABS: Calcium 9.5 MG/DL (8.5-10.1); Magnesium 2.3 MG/DL (1.8-2.4); Osmolality,Calculated 285.8 MOS/KG (273-304); Potassium 4.8 MMOL/L (3.5-5.1)
[2017-07-08] MEDS: ASPIRIN CHEW 81 MG TABLET PO SCH (09:56)
[2017-07-08] MEDS: ENOXAPARIN 40 MG/0.4 ML SYRINGE SUBCUT SCH (12:21)
[2017-07-08 13:11] VITALS: BP 122/64
--- NOTE | 2017-07-08 13:44 | Family Practice Progress Note ---
Family Practice - PN: Subj Interval history: Patient seen this evening. Sitting in chair without acute distress waiting to go to telemetry from CCU. Reports reviewed from cardiology. Do agree with a 30 day event monitor upon discharge. Will have vascular surgery evaluate carotid duplex report and discussed with patient possible options/further studies if necessary. She is very alert, in good spirits, denies any specific symptoms at this time, but daughter states that she has had "floaters" in her left eye and that over the last month or so has had some weakness in her right arm. She was concerned this was related to mother's carotid issues. I told her that I did not think that the duplex study met the criteria for causing these kinds of issues. I am going to get orthostatic vital signs tonight and if patient doing well tomorrow we will probably discharge unless vascular surgery says otherwise. I do appreciate their assistance on this case as well as cardiology. 07/08/2017: Patient and family seen this morning. She is eating breakfast this morning without difficulty in telemetry. Has not had any other real symptoms at this time. Vital signs are stable and lab looks good. Will wait on surgery to decide direction with regards to the carotid duplex. I will plan on going ahead and getting a CT angiogram of the carotids at this point. If no problems after this will going discharge the patient today and have her see Dr. Torres this coming Wednesday as scheduled. Exam (Progress Note) - Constitutional Vitals: Period Temp Pulse Resp BP Sys/Rodriguez Pulse Ox Last 24 Hr 96.5 F-98.5 F 62-94 14-24 121-154/51-71 93-96 Exam: Generally well-developed female is alert and oriented answers all questions appropriately, good spirits, follows all commands. Eating at this time HEENT pupils equally reactive to light. . Neck is supple trachea midline, no difficulty with swallowing Cardiovascular rate is regular at present. Lungs clear no wheezing rales rhonchi appreciated, the patient is not coughing. No shortness of breath Abdomen no pain per patient, is eating well Extremities no clubbing cyanosis or edema Neurologically fully intact I do not appreciate any cranial nerve deficits no overall change. There is no slurred speech Results - Labs CBC & BMP: 07/08/17 04:44 07/08/17 04:44 Assessment and Plan (1) Chest pain at rest Status: Acute Assessment and plan: 07/06/2017 we will admit patient and have her see cardiology. I am going to put her on Lopressor gave her an aspirin in the clinic she was admitted to the hospital. Current Visit: Yes (2) Fibromyalgia Status: Chronic Assessment and plan: 07/06/2017: We will continue any medicines necessary for this. She is on chronic pain medicine Current Visit: Yes (3) History of gastroesophageal reflux (GERD) Status: Chronic Assessment and plan: 07/06/2017: She can only take probably 6. States that she does not tolerate Protonix so we will continue Prilosec Current Visit: Yes (4) Syncope Status: Acute Assessment and plan: 07/07/2017: I am going to do a tilt test/orthostatic study tonight. As requested by cardiology plan on putting her on a 30 day event monitor Current Visit: Yes Specialty Discharge - Follow Up or Referrals Follow up with: Jaron Best MD [Physician] - 1 Month (Please have patient slate picker a 30 day event recorder at [facility] upon discharge and arrange follow up with Dr. Best in 1 month. )
--- NOTE | 2017-07-08 15:05 | CT Report ---
CT angio neck Indication: Abnormal ultrasound carotid arteries. CT ANGIOGRAM CAROTID ARTERIES DLP: 130 mGy*cm. One or more of the following dose reduction techniques was used: Automated exposure control, adjustment of the mA and/or kV according the patient size, or use of iterative reconstruction techniques. Technique: Axial thin cuts CT images were obtained from the aortic arch through the skull base during the arterial phase of contrast injection. 3-D vascular MIPs reconstructions and multiplanar reformats were evaluated. Omnipaque 350, 80 cc given. Comparison: Carotid ultrasound 07/06/2017. Findings: Severity of stenosis based on NASCET criteria. Reference downstream ICA diameters are 4.6 mm on the right and 3.7 mm on the left. There is no measurable stenosis at either ICA origin and no plaque deposition shown. Both internal carotid arteries are widely patent through the skull base. The external carotid branches are widely patent as visualized. Both vertebral arteries are widely patent through the skull base are symmetric in size. Each of the vertebral arteries demonstrate normal anatomic origins off the respective subclavian arteries. The common carotid arteries are widely patent. Brachiocephalic and proximal subclavian arteries are widely patent. Aortic arch is of normal caliber without dissection or aneurysm demonstrated. No superior mediastinal lymphadenopathy. Thyroid is homogeneous, including a 12 x 8 mm hypodensity within the right lobe. No cervical chain lymphadenopathy is shown. Pulmonary apices demonstrate emphysematous changes as well as a spiculated 4 mm nodule within the posterior left upper lobe seen only on the edge of the image. This density was present on multiple prior CT chest studies ranging from 10/13/2011 through 10/02/2013. Degenerative changes cervical spine noted. Minimal amount of nodular mucosal thickening of the right maxillary sinus noted. The remainder of visualized paranasal sinuses and mastoid air cells are clear. Impression: 1. No atheromatous disease evident and no measurable stenosis of either ICA origin. 2. Spiculated pulmonary nodule left upper lobe, stable since multiple prior CT chest studies, therefore benign. Please note the lungs are only partially imaged at both apices. 3. Degenerative changes cervical spine. 4. Minimal right maxillary sinus disease. PROCEDURE INTERPRETED AT [facility] DEPARTMENT OF RADIOLOGY Final Report Signed by: Jaron Baker M.D.
--- NOTE | 2017-07-08 16:37 | Discharge Summary ---
Hospital Course - Hospital Course Hospital Course: Patient came to the hospital directly from my clinic with atypical complaints of chest pain. However she described them as being at rest. I admitted her and got a cardiology to see her. During the course of hospitalization. She also mentioned that she had recent (3) syncope episodes over the last month. She was worked up with cardiology which included electrocardiograms, chest x- rays, carotid Doppler study, echocardiogram, myocardial perfusion scan with a treadmill, CT angiogram of the carotids. All of the studies including labs were essentially normal, except for the carotid duplex which did reveal some occlusion however, this was ruled out with the angiogram.. I had long discussion with the family concerning options. We had her set up to see Dr. ta but with a negative CT angiogram. I gave him the option of whether they wanted to go see him or not, which it is already scheduled for this coming Wednesday. In addition, she is to get a 30 day event monitor from [facility] this afternoon or tomorrow morning. They discussed the possibility of getting a MRI of her brain and I told them I would set this up but they did not want to do this at this time until we get her through the 30 day monitor and after an upper EGD study for possible GI issues which we are going to set up outpatient from my clinic. I did tell her if she had any further issues to return to the emergency room and they voiced understanding concerning this. We are going to discharge her on the medicines that cardiology has recommended and have close follow-up in the clinic. Again discussed this with her family including her and 2 of her 3 daughters in the room, along with nurse. Diagnosis - Discharge Diagnosis (1) Chest pain at rest Status: Acute (2) Fibromyalgia Status: Chronic (3) History of gastroesophageal reflux (GERD) Status: Chronic (4) Syncope Status: Acute Specialty Discharge - Follow Up or Referrals Follow up with: Jaron Best MD [Physician] - 1 Month (Please have patient warp picker a 30 day event recorder at [facility] upon discharge and arrange follow up with Dr. Best in 1 month. ) Ben Rangel MD [Physician] - 07/12/17 1:30 pm Discharge Plan - Discharge Data Disposition: Disch To Home/Self Care Condition at Discharge: Stable Discharge Diet: advance to your usual diet Activity: increase activity as tolerated Hygiene: no restrictions Weight Bearing at Discharge: full weight bearing Driving: no restrictions Contact your physician if you experience:: Shortness of breath, pain uncontrolled by pain medications - Discharge Medications New Metoprolol Succinate Xl [Toprol Xl] 50 mg PO DAILY #30 tablet Aspirin Chew Tab 81 mg PO DAILY tablet Continue Lovastatin 20 mg PO DAILY W/BREAKFAST HYDROcodone/ACETAMIN 5-325 [[place] 5-325] 1 tablet PO TID Omeprazole [Prilosec] 20 mg PO DAILY Estropipate 1.25 mg PO DAILY - Follow Up or Referral Follow Up: Jaron Best MD [Physician] - 1 Month (Please have patient warp picker a 30 day event recorder at [facility] upon discharge and arrange follow up with Dr. Best in 1 month. ) Ben Rangel MD [Physician] - 07/12/17 1:30 pm Tony Dorsey DO [Primary Care Provider] - 1 Month - Forms/Instructions Exam - Constitutional Vitals: Period Temp Pulse Resp BP Sys/Rodriguez Pulse Ox Last 24 Hr 96.5 F-98.4 F 62-94 14-20 121-154/51-71 93-96 Discharge Results Procedures and tests throughout hospitalization: Pending Orders 07/09/17 04:00 BMP w/ Mg [Basic Metabolic Panel w/Mg] IN AM CBC [Comp Blood Count Auto Diff] IN AM Labs on day of discharge: Labs from last 24 hours 07/08/17 07/08/17 04:44 04:44 WBC 6.9 RBC 4.70 Hgb 13.9 Hct 41.0 MCV 87.2 MCH 30 MCHC 33.9 RDW 13.3 Plt Count 204 MPV 9.5 L Neut % (Auto) 47.8 Lymph % (Auto) 38.4 Ida % (Auto) 10.2 Eos % (Auto) 2.8 Baso % (Auto) 0.4 Neut # (Auto) 3.3 Lymph # (Auto) 2.6 Ida # (Auto) 0.7 Eos # (Auto) 0.2 Baso # (Auto) 0.0 Immature Gran % 0.4 Nucleated RBC % 0.0 Immature Gran # 0.03 Nucleated RBCs # 0.00 Immature Plt Fraction 0.0 Sodium 144 Potassium 4.8 Chloride 108 H Carbon Dioxide 33 H Anion Gap 7.8 BUN 15 Creatinine 0.90 GFR Calculation 70 BUN/Creatinine Ratio 16.00 Glucose 87 Calculated Osmolality 285.8 Calcium 9.5 Magnesium 2.3 DS: Provider Date of admission: 07/06/17 09:31 Primary care physician: Tony Dorsey DO Attending physician on admission: Tony Dorsey DO Consults: 07/06/17 09:31 Consult to Case Mgmt/Social Srvs [CONS] Routine Reason for Case Mgmt/Social Srvs: Discharge Planning Consult to Physician [CONS] Routine Comment: chest pain Consulting Provider: Cardiology - [facility] Person Notified: [facility] Date Notified: 07/06/17 Time Notified: 10:49 07/08/17 10:27 Consult to Physician [CONS] Routine Comment: Consulting Provider: Ben Rangel Person Notified: vinod Date Notified: 07/08/17 Time Notified: 10:15 Discharging clinician: Tony Dorsey DO
== END 2017-07-08 18:09 | disposition home or self-care (01) ==
LOC: N.CC → N.TELES 07-07 18:40
PROVIDERS: ADMIT Family Medicine; ATTEND Family Medicine